=== PATIENT | male | born 1990 | race African-American/Black ===

== ENCOUNTER 2016-07-22 20:59 | Emergency (ER) | payer OTHER ==
[~2016-07-22] VITALS: Ht 190.5 cm; Wt 77.1 kg
[2016-07-22 21:01] VITALS: BP 117/54
[2016-07-22] MEDS ORDERED: VENTOLIN HFA 1818 GM (21:08)
[2016-07-22] MEDS ORDERED: PRILOSEC 20 MG20 MG (21:09)
[2016-07-22] MEDS ORDERED: MUCINEX D ER 11 EACH PO (22:45)
== END 2016-07-22 22:59 | disposition home or self-care (01) ==
LOC: ER 20:59
DX: J06.9 Acute upper respiratory infection, unspecified (principal); J45.909 Unspecified asthma, uncomplicated; F17.200 Nicotine dependence, unspecified, uncomplicated; F10.99 Alcohol use, unspecified with unspecified alcohol-induced disorder